=== PATIENT | female | born 1935 | race Caucasian/White ===

== ENCOUNTER → 2016-08-25 | Outpatient (CLI) | payer OTHER ==
--- NOTE | 2016-08-25 16:25 | DX ---
Chest, PA and Lateral History: Pneumonia, J18.9 Comparison: June 25, 2015 Findings: There is platter atelectasis or scarring at each lung base. There is no focal infiltrate or pleural effusion. Heart size and pulmonary vascularity are normal. Lung findings remain moderately p rominent consistent with underlying COPD. A right shoulder replacement remains. There is chronic mild tortuosity of the descending thoracic aorta, atherosclerotic calcification in the aortic arch and de generative changes in the mid thoracic and lumbar spine. There is been progressive narrowing of the T 17-T8 disk space. There is a stable moderate T12 compression. No new compressions have developed. Impression: No pneumonia identified.
== END ==
LOC: FIMAGING 15:55
PROVIDERS: ATTEND Internal Medicine
DX: Z03.89 Encounter for observation for other suspected diseases and conditions ruled out (principal)

== ENCOUNTER → 2017-05-05 | Outpatient (CLI) | payer OTHER | LOC: FIMAGING 12:57 → EDSTATUS 12:58 | PROVIDERS: ATTEND Internal Medicine | DX: J44.9 Chronic obstructive pulmonary disease, unspecified (principal); M41.9 Scoliosis, unspecified ==

== ENCOUNTER → 2018-01-16 | Outpatient (CLI) | payer OTHER | LOC: FIMAGING 07:50 | DX: M51.16 Intervertebral disc disorders with radiculopathy, lumbar region (principal); M51.14 Intervertebral disc disorders with radiculopathy, thoracic region ==

== ENCOUNTER → 2018-10-05 | Outpatient (CLI) | payer OTHER | LOC: FIMAGING 13:31 | PROVIDERS: ATTEND Internal Medicine | DX: Z03.89 Encounter for observation for other suspected diseases and conditions ruled out (principal) ==

== ENCOUNTER 2018-12-09 11:40 | Emergency (ER) | payer OTHER ==
--- NOTE | 2018-12-09 12:08 | EDPHY ---
H & P Stated Complaint: Mech fall this AM, striking fr squama and R wrist: head/neck/ wrist pn,noLOC Time Seen by Provider: 12/09/18 12:04 HPI/ROS: HPI: This is an 83-year-old female who presents with Chief Complaint: Mech fall this AM, striking fr squama and R wrist: head/neck/ wrist pn,noLOC Location: Right forehead, right hand Quality: Injury, pain Duration: 1-3 hours prior to arrival Signs and Symptoms: No bleeding, no radiation, no numbness, no weakness, no tingling, no incontinence, no decreased range of motion, no swelling, + pain, no fever Timing: Acute Severity: [id number] Context: Patient was walking out of her garage to treat her newspaper from the driveway when she accidentally tripped over a box and fell forward. She struck the right side of her forehead on the cement floor and also hurt her right hand as she put it out test stop her fall. Patient is right-hand dominant. Patient complains of pain in her 1st to 3rd fingers. 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 She reports that she has some bilateral visual blurriness and posterior neck pain since the fall. After she fell, she was able to get up off of the floor on her own and go to the phone to call her family friend. Takes baby aspirin daily Modifying Factors: None Comment: ROS: A comprehensive 10 system review of systems is otherwise negative aside from elements mentioned in the history of present illness. MEDICAL/SURGICAL/SOCIAL HISTORY: Medical history: Alopecia, depression Surgical history: Denies Social history: Retired, lives alone with 3 dogs. Denies drug use. Never smoked. CONSTITUTIONAL: Early, talkative white female, awake and alert, no obvious distress HEENT: 3 in bruise noted on right forehead with no skin breakdown or active bleeding. normocephalic, PERRL, EOMI. no globe entrapment, no raccoon eyes. no Watts signs.Tympanic membranes clear. No tympanic membrane rupture. Nares patent; no septal hematoma. Oropharynx clear, no exudate and moist pink mucosa. No malocclusion. no dental trauma. Airway patent. No lymphadenopathy. NECK: supple, no midline tenderness, flexion 45 degrees, extension 45 degrees, right and left lateral flexion 45 degrees. No meningismus. Cardiovascular: Normal S1/S2, regular rate, regular rhythm, without murmur rub or gallop. PULMONARY/CHEST: Symmetrical and nontender. no crepitus. Clear to auscultation bilaterally. Good air movement. No accessory muscle usage. ABDOMEN: Soft, nondistended, nontender, no ecchymosis, no rebound, no guarding , no peritoneal signs, no masses or organomegaly. No CVAT. PELVIC: no pain with rocking; bilateral hips flexion 125 degrees, extension 30 degrees, with no pain internal rotation and no pain external rotation. BACK: No midline tenderness, no paraspinous spasm, deep tendon reflexes 2/2, no pain with straight leg raise EXTREMITIES: 2/2 radial pulses, [place] and Luz's nodules noted throughout both hands, right WRIST: Extension to 70, flexion to 80, radial deviation to 20 degree, ulnar deviation to 30, no scaphoid tenderness, no tenderness over ulnar styloid. no clubbing, no cyanosis or edema. NEUROLOGICAL: no focal neuro deficits. GCS 15. SKIN: Warm and dry, no erythema. no rash. Good capillary refill. Source: Patient Exam Limitations: No limitations - Personal History Current Tetanus/Diphtheria Vaccine: Yes Tetanus Vaccine Date: 2009 - Medical/Surgical History Hx Asthma: No Hx Chronic Respiratory Disease: No Hx Diabetes: No Hx Cardiac Disease: No Hx Renal Disease: No Hx Cirrhosis: No Hx Alcoholism: No Hx HIV/AIDS: No Hx Splenectomy or Spleen Trauma: No Other PMH: none - Social History Smoking Status: Never smoked Constitutional: Initial Vital Signs Temperature (C) 36.4 C 12/09/18 11:46 Heart Rate 77 12/09/18 11:46 Respiratory Rate 18 12/09/18 11:46 Blood Pressure 152/103 H 12/09/18 11:46 O2 Sat (%) 92 12/09/18 11:46 O2 Delivery Mode Room Air Allergies/Adverse Reactions: gluten [Gluten] Allergy (Intermediate, Verified 12/09/18 11:46) Other-Enter Comments ranitidine HCl [From Zantac] Allergy (Intermediate, Verified 12/09/18 11:46) DIZZY, DISORIENTED Sulfa (Sulfonamide Antibiotics) Allergy (Intermediate, Verified 12/09/18 11:46) Other-Enter Comments Macrolide Antibiotics Allergy (Unknown, Verified 12/09/18 11:46) Other-Enter Comments Home Medications: Medication Instructions Recorded Aspirin [Aspirin 81mg] 81 mg PO DAILY 08/19/11 CELECOXIB [Celebrex] 200 mg PO DAILY 08/19/11 Cholecalciferol (Vitamin D3) 400 units PO DAILY 08/19/11 [Vitamin D3] Citalopram [CeleXA] 20 mg PO DAILY 08/19/11 Diclofenac Sodium 1% [Voltaren Gel] 1 applic TP DAILY 08/19/11 Hyauronic Acid/Msm 1 tab PO DAILY 08/19/11 Multivitamins W-Minerals/Lut 1 each PO DAILY 08/19/11 [Centrum Silver Tablet] [place]-3 Fatty Acids/Fish Oil [Fish 4 each PO DAILY 08/19/11 Oil 1,000 mg Softgel] Ubidecarenone [Co Q-10] 100 mg PO DAILY 08/19/11 Ezetimibe [Zetia] 10 mg PO DAILY 08/25/11 Rabeprazole Sodium [Aciphex] 20 mg PO DAILY 08/25/11 SIMVASTATIN [Zocor] 20 mg PO DAILY 08/25/11 ESOMEPRAZOLE MAG TRIHYDRATE 40 mg PO DAILY 09/05/11 [NEXIUM] Levothyroxine Sodium [Synthroid] 75 mcg PO DAILY 09/05/11 traMADol [Ultram 50 mg (*)] 50 mg PO Q6 PRN #10 tab 12/09/18 Medical Decision Making - Diagnostics Imaging Results: Imaging Impressions Wrist X-Ray 12/09/18 11:57 Impression: 1. Minimally displaced second metacarpal fracture with extension to the base of the metacarpal. 2. Nondisplaced third metacarpal fracture. 3. Dorsal angulation of the lunate suggesting dorsal intercalated segment instability. 4. Additional findings as above. Cervical Spine CT 12/09/18 12:08 Impression: 1. No acute posttraumatic findings. If there is persistent pain or neurologic deficit, consider MRI and/or flexion and extension views, if clinically indicated. 2. Severe multilevel degenerative change with spondylolistheses, partial fusion , and additional findings, as above. Findings discussed with Marilyn Bashir PA-C on December 09, [address] 12/09/18 12:08 Impression: 1. No acute intracranial findings. 2. Diffuse cerebral atrophy with periventricular and subcortical low attenuation consistent with chronic microvascular ischemic gliosis. Findings discussed with Marilyn Bashir PA-C on December 09, 2018 at 1305 hours. Procedures: Procedure: Splint placement. A right forearm volar Ortho Glass splint and sling were applied. After application of the splint I returned and re-examined the patient. The splint was adequately immobilizing the joint and distal to the splint the patient's circulation and sensation was intact. ED Course/Re-evaluation: Vital signs reviewed and stable upon arrival. Tetanus is up-to-date. Fall was mechanical in nature. No signs of CVA, seizure activity, ACS. Based on nexus protocol of age greater than 65 years old and taking aspirin, head CT imaging ordered Based on nexus protocol of cervical midline tenderness, cervical CT imaging ordered Right wrist x-ray ordered and my read shows minimally displaced 2nd metacarpal fracture, nondisplaced 3rd metacarpal fracture 1310: Head CT scan per Dr. Jeong shows atrophy but no acute fracture/ hemorrhage Cervical CT scan per Dr. Jeong shows multilevel degenerative disc disease but no fracture/disc herniation Patient was placed in forearm volar Ortho Glass splint, sling, orthopedic follow -up No signs of concussion at this time. No signs of neurovascular compromise/tenting of skin/compartment syndrome/ extremities and joints examined above and below area of concern and are neurovascularly intact. This patient was seen under the supervision of my secondary supervising physician. I evaluated and cared for this patient with attending. Differential Diagnosis: Head injury including but not limited to concussion, skull fracture, intraparenchymal contusion, subarachnoid, subdural and epidural hematoma. - Data Points Medications Given: Discontinued Medications Ibuprofen (Motrin) 600 mg PO EDNOW ONE Stop: 12/09/18 13:12 Last Admin: 12/09/18 13:14 Dose: 600 mg Departure - Departure Disposition: Home, Routine, Self-Care Clinical Impression: Disc disease, degenerative, cervical Forehead contusion Qualifiers: Encounter type: initial encounter Qualified Code(s): S00.83XA - Contusion of other part of head, initial encounter Closed head injury without loss of consciousness Qualifiers: Encounter type: initial encounter Qualified Code(s): S09.90XA - Unspecified injury of head, initial encounter Fracture of second metacarpal bone of right hand Qualifiers: Encounter type: initial encounter Fracture type: closed Fracture morphology: unspecified fracture morphology Qualified Code(s): S62.300A - Unspecified fracture of second metacarpal bone, right hand, initial encounter for closed fracture Closed fracture of third metacarpal bone of right hand Qualifiers: Encounter type: initial encounter Metacarpal location: shaft Fracture alignment : nondisplaced Qualified Code(s): S62.352A - Nondisplaced fracture of shaft of third metacarpal bone, right hand, initial encounter for closed fracture Condition: Good Instructions: Hand Fracture (ED), How to Use a Sling (ED), Head Injury (ED), Splint Care (ED), Degenerative Disc Disease (ED), ORIF (DC) Additional Instructions: Keep the splint dry and in place until seen by orthopedic. Use the sling while out of bed as needed for comfort. Take Tylenol 650 mg every 4 hours and/or Ibuprofen 600 mg every 8 hours with food as needed for pain. Use Tramadol every 6 hours as needed for severe/break through pain. Apply ice for 30 minutes at a time; 2-3 times per day for the next 1-2 days. Follow up with Orthopedics in 5-7 days at which time they will evaluate and recommend with you if conservative management versus surgery is indicated. Return to the ER immediately if you have progressive headaches, neurologic deficits, gait abnormality, visual disturbance, slurred speech, or any other symptom that concerns you. Referrals: Nikhil Brush MD [Primary Care Provider] - As per Instructions Luisito Last MD [Medical Doctor] - As per Instructions Prescriptions: traMADol [Ultram 50 mg (*)] 50 mg PO Q6 PRN #10 tab PRN Reason: Pain, Severe
[2018-12-09] MEDS ORDERED: IBUPROFEN 600 MG TAB PO ONE (13:11)
[2018-12-09 13:59] VITALS: BP 170/98
== END 2018-12-09 13:59 | disposition home or self-care (01) ==
PROC: 2W3CX1Z Immobilization of Right Lower Arm using Splint (ICD-10-PCS; principal; 2018-12-09)
DX: S62.310A Displaced fracture of base of second metacarpal bone, right hand, initial encounter for closed fracture (principal); S62.352A Nondisplaced fracture of shaft of third metacarpal bone, right hand, initial encounter for closed fracture; S00.83XA Contusion of other part of head, initial encounter; M47.812 Spondylosis without myelopathy or radiculopathy, cervical region; M43.12 Spondylolisthesis, cervical region; W01.198A Fall on same level from slipping, tripping and stumbling with subsequent striking against other object, initial encounter; Y92.008 Other place in unspecified non-institutional (private) residence as the place of occurrence of the external cause
CPT/HCPCS: 29125; 70450; 72125; 73110; 99284; A4565